=== PATIENT | female | born 1955 | race Caucasian/White ===

== ENCOUNTER 2016-12-17 05:40 | Emergency (ER) | payer MEDICAID ==
[~2016-12-17] VITALS: Ht 165.1 cm; Wt 71.7 kg
[~2016-12-17 05:40] MED LIST: HYDR-3307 PO; VITA1TAB19 PO
[2016-12-17] MEDS ORDERED: FLUORESCEIN OPHTHALMIC 1 MG STRIP ONE (06:08)
[2016-12-17] MEDS ORDERED: PROPARACAINE OPHTH 0.5%, 15ML ONE (06:08)
[2016-12-17] MEDS ORDERED: HYDROcodone/APAP 5/325 TABLET ONE (07:51)
[2016-12-17 07:55] VITALS: BP 169/108
[2016-12-17] MEDS ORDERED: HYDROcodone/APAP 5/325 TABLET PO ONE (08:00)
== END 2016-12-17 07:57 | disposition home or self-care (01) ==
LOC: ED 05:54
DX: S05.01XA Injury of conjunctiva and corneal abrasion without foreign body, right eye, initial encounter (principal); B02.33 Zoster keratitis; X58.XXXA Exposure to other specified factors, initial encounter; Y93.89 Activity, other specified; Y92.89 Other specified places as the place of occurrence of the external cause; Y99.8 Other external cause status
CPT/HCPCS: 99283

== ENCOUNTER 2017-08-23 16:10 | Emergency (ER) | payer MEDICAID ==
[~2017-08-23] VITALS: Ht 165.1 cm; Wt 77.1 kg
[2017-08-23 16:15] VITALS: BP 191/117
[2017-08-23] MEDS ORDERED: LIDOCAINE-MPF 1%, 5ML INFIL ONE (16:30)
[2017-08-23] MEDS ORDERED: DIPH,PERTUSS(ACELL),TET VAC/PF 0.5 ML IM-VACC ONE ×3 (16:30→17:00)
[2017-08-23] MEDS ORDERED: LIDOCAINE-MPF 1%, 5ML ONE (16:47)
[2017-08-23] MEDS ORDERED: BACITRACIN ZINC OINT 500U/GM, 0.9 GM ONE (16:47)
[2017-08-23] MEDS ORDERED: LIDOCAINE 2%, 20ML SQ ONE (17:00)
[2017-08-23 17:12] LABS: BASOPHILS # (AUTO) 0.04 x10^3/uL (0-0.1); BASOPHILS % (AUTO) 1 % (0-1); EOSINOPHILS % (AUTO) 2 % (1-7); LYMPHOCYTES # (AUTO) 2.42 x10^3/uL (1-3.4); LYMPHOCYTES % (AUTO) 30 % (22-44); MD NO; MEAN CORPUSCULAR HEMOGLOBIN 31.6 pg (27.0-34.8); MEAN PLATELET VOLUME 7.4 fL (7.4-10.4); MONOCYTES # (AUTO) 0.59 x10^3/uL (0.2-0.8); MONOCYTES % (AUTO) 7 % (2-9); NEUTROPHILS # (AUTO) 4.86 x10^3/uL (1.8-6.8); NEUTROPHILS % (AUTO) 60 % (42-75); PLATELET COUNT 433 x10^3/uL (130-400); RED BLOOD COUNT 4.42 x10^6/uL (3.82-5.3); RED CELL DISTRIBUTION WIDTH 12.7 % (9.6-15.2)
[2017-08-23 17:22] LABS: ALBUMIN 3.9 g/dL (3.4-5.0); ANION GAP 6 mmol/L (5-15); CALCIUM 8.6 mg/dL (8.5-10.1); CHLORIDE 107 mmol/L (98-107); CREATININE 0.78 mg/dL (0.55-1.02)
[2017-08-23 17:27] LABS: TROPONIN I < 0.015 ng/mL (0.000-0.045)
== END 2017-08-23 18:45 | disposition home or self-care (01) ==
LOC: ED 18:00
DX: S61.452A Open bite of left hand, initial encounter (principal); I10 Essential (primary) hypertension; W54.0XXA Bitten by dog, initial encounter; Y93.89 Activity, other specified; Y99.8 Other external cause status; Y92.009 Unspecified place in unspecified non-institutional (private) residence as the place of occurrence of the external cause
CPT/HCPCS: 12041; 36415; 71045; 80048; 82040; 84484; 85025; 90471; 90715; 93005; 99285

== ENCOUNTER 2019-08-15 12:24 | Emergency (ER) | payer MEDICAID, MEDICARE ==
[~2019-08-15] VITALS: Ht 165.1 cm; Wt 77.1 kg
[~2019-08-15 12:24] MED LIST changes: -HYDR-3307 PO; +HYDR-36 PO
[2019-08-15 14:17] VITALS: BP 184/119
--- NOTE | 2019-08-15 14:23 | NUR ---
MANUAL BP CHECK 184/119. PT VERBALIZES THAT SHE HAS BEEN PSUEDOPHEDREN FOR PAST 2 DAYS "IT ALWAYS RAISES MY BP, ER PA INFORMED
--- NOTE | 2019-08-15 14:25 | NUR ---
PT ASYMPTOMATIC, NO C/O FERGUSON OR DIZZINESS.
--- NOTE | 2019-08-15 14:33 | NUR ---
TASK RN: Patient/Caregiver given discharge instructions and they have confirmed that they understand the instructions. Patient ambulatory with steady gait.
== END 2019-08-15 14:36 | disposition home or self-care (01) ==
LOC: ED 14:25
DX: S00.01XA Abrasion of scalp, initial encounter (principal); L72.3 Sebaceous cyst; I10 Essential (primary) hypertension; X58.XXXA Exposure to other specified factors, initial encounter; Y93.89 Activity, other specified; Y92.89 Other specified places as the place of occurrence of the external cause; Y99.8 Other external cause status
CPT/HCPCS: 99281

== ENCOUNTER 2019-08-17 12:45 | Emergency (ER) | payer MEDICARE ==
[~2019-08-17] VITALS: Ht 165.1 cm; Wt 76.0 kg
[2019-08-17 12:47] VITALS: BP 193/100
--- NOTE | 2019-08-17 13:04 | NUR ---
PT CAME IN BECAUSE AN "ABCESS GROWTH ETELVINA HAD ON MY HEAD FOR YEARS HAS BUSTED OPEN AND IM AFRAID IT IS GETTING INFECTED"
== END 2019-08-17 13:35 | disposition home or self-care (01) ==
LOC: ED 13:01
DX: L03.811 Cellulitis of head [any part, except face] (principal); L72.3 Sebaceous cyst; I10 Essential (primary) hypertension
CPT/HCPCS: 99283